=== PATIENT | female | born 2005 | race African-American/Black ===

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

== ENCOUNTER 2024-02-09 23:26 | Emergency (ER) | payer OTHER, SELFPAY ==
[~2024-02-09] VITALS: Ht 160 cm; Wt 70.6 kg
[2024-02-10] MEDS: MAGIC MOUTHWASH 5ML ORAL SYRINGE SS ONE (03:52)
[2024-02-10 04:00] VITALS: BP 118/74; TEMP 98.4; O2SAT 100
[2024-02-10] MEDS: ACETAMINOPHEN TAB 650MG DOSE (2X325MG) PO ONE (04:05)
[2024-02-10] MEDS: CEPHALEXIN 500 MG CAP PO ONE (04:06)
[2024-02-10] MEDS ORDERED: CEPH25SS PO (04:23)
[2024-02-10] MEDS ORDERED: MAGICMW SSP (04:23)
== END 2024-02-10 04:52 | disposition home or self-care (01) ==
LOC: M ED 23:26
DX: J03.00 Acute streptococcal tonsillitis, unspecified (principal); Z88.1 Allergy status to other antibiotic agents

== ENCOUNTER 2025-07-10 15:44 | Emergency (ER) | payer OTHER ==
[~2025-07-10] VITALS: Ht 160 cm; Wt 69.2 kg
[~2025-07-10 15:44] MED LIST changes: +CEPH25SS PO; +MAGICMW SSP
[2025-07-10] MEDS: IBUPROFEN 600 MG TAB PO ONE (19:01)
[2025-07-10] MEDS: ACETAMINOPHEN 500 MG TAB PO ONE (19:02)
[2025-07-10 20:46] VITALS: BP 119/64; TEMP 97.9; O2SAT 99
== END 2025-07-10 21:26 | disposition home or self-care (01) ==
LOC: M ED 15:44
DX: S16.1XXA Strain of muscle, fascia and tendon at neck level, initial encounter (principal); S39.012A Strain of muscle, fascia and tendon of lower back, initial encounter; V49.40XA Driver injured in collision with unspecified motor vehicles in traffic accident, initial encounter; Y92.9 Unspecified place or not applicable; Y93.9 Activity, unspecified; Y99.9 Unspecified external cause status; Z88.1 Allergy status to other antibiotic agents